=== PATIENT | male | born 1945 | race Caucasian/White ===

== ENCOUNTER 2025-04-13 14:48 | Outpatient (REF) | payer MEDICARE, MEDICAID, SELFPAY ==
--- OUTSIDE RECORDS SUMMARY | 2025-04-13 15:38 | XMS_ITS | Clinical Summary ---
Author Organization [facility] Address [address] [place] [address] Care Team Providers Care Talent Development Analyst Name Role Phone Juana Ana Laura RACHEL Primary Care Provider [phone] Surgical History Surgery Date Site/Laterality Comments CATARACT EXTRACTION 2013 PROCEDURE: HISTORICAL CATARACT REMOVAL Medical History Medical History Date Comments Hx of CABG 02/25/2017 DX:Hx of CABG; C OMMENT: x3 2000 Dr. Wynne process safety engineering technologist Coronary artery disease 02/25/2017 DX:Coron venkata artery disease HTN (hypertension) 02/25/2017 DX:HTN (hyper tension) Hyperlipidemia 02/25/2017 DX:Hyperlipidemi a BPH (benign prostatic hypertrophy) 02/25/2017 DX:BPH (benign prostatic hypertrophy) History of herpes zoster 02/25/2017 DX:Hist ory of herpes zoster Osteoarthritis of knee 02/25/2017 DX:Osteoa rthritis of knee Hard of hearing 02/25/2017 DX:Hard of heari ng History of head injury 02/25/2017 DX:Histor y of head injury History of cataract surgery 03/04/2017 DX:H istory of cataract surgery; COMMENT: 2013 Social History Tobacco Use Types Packs/Day Years Used Date Smoking Tobacco: Never Smokeless Tobacco: Never Alcohol Use Standard Drinks/Week Comments Not Asked 0 (1 standard drink = 0.6 oz pur e alcohol) Sex and Gender Information Value Date Recorded Sex Assigned at Not on file Legal Sex Male 2:18 PM EST Gender Identity Not on file Sexual Orientation Not on file Obstetrics History Plan of Treatment Health Maintenance Due Date Last Done Comments Zoster Vaccines (1 of 2) 1993 RSV Immunization Adult Patients (1 - 1-dose 75+ series) 2018 COVID-19 Vaccine ( season) 2024 03/30/2021, 03/09/2021 Influenza Vaccine (Season Ended) 2025 10/24/2022, 08/14/2021, 07/26/2020, Additional history exists DTaP,Tdap,and Td Vaccines (3 - Td or Tdap) 01/20/2029 01/20/2019, 08/03/2009 Pneumococcal Vaccine: 50+ Years Completed 09/20/2019, 08/31/2018 HIB Vaccines Aged Out No longer eligi ble based on patient's age to complete this topic HPV Vaccines Aged Out No longer eligi ble based on patient's age to complete this topic Hepatitis A Vaccines Aged Out No long er eligible based on patient's age to complete this topic Hepatitis B Vaccines Aged Out No long er eligible based on patient's age to complete this topic IPV Vaccines Aged Out No longer eligi ble based on patient's age to complete this topic MMR Vaccines Aged Out No longer eligi ble based on patient's age to complete this topic Meningococcal ACWY Vaccine Aged Out N o longer eligible based on patient's age to complete this topic Meningococcal B Vaccine Aged Out No l onger eligible based on patient's age to complete this topic RSV Immunization Patients Under 20 months Aged Out No longer eligible based on patient's age to complete this topic Varicella Vaccines Aged Out No longer eligible based on patient's age to complete this topic Care Teams Talent Development Analyst Relationship Specialty Start Date End Date Ana Laura Arias NP PCP - General Internal Medicine 05/25/20
[2025-04-13 17:31] LABS: MANUAL DIFF FLAG NO
[2025-04-13 17:58] LABS: Alanine Aminotransferase 10 U/L (0-40); Albumin Level 4.2 g/dL (3.5-5.0); Alkaline Phosphatase 103 U/L (39-117); Anion Gap 11 (12-20); Aspartate Amino Transferase 20 U/L (5-37); Bilirubin Total 0.5 mg/dL (0.0-1.0); Blood Urea Nitrogen 15 mg/dL (9-16); Calcium 9.3 mg/dL (8.4-10.2); Carbon Dioxide 27 mmol/L (22-29); Chloride 106 mmol/L (96-108); Cholesterol 246 mg/dL (<200); Estimated Glomerular Filt Rate > 60; Glucose Random 95 mg/dL (60-115); HDL Cholesterol 40 mg/dL (>40); LDL Cholesterol Calculated 162 mg/dL (<100); Sodium 140 mmol/L (135-145); Triglycerides 224 mg/dL (<150)
[2025-04-13 18:04] LABS: Basophils Absolute Auto 0.1 X10*3/uL (0.0-0.2); Eosinophils Absolute Auto 0.1 X10*3/uL (0.0-0.4); Eosinophils Percent Auto 1.7 % (0-4); Hematocrit 43.1 % (42.0-52.0); Hemoglobin 14.7 g/dl (14.0-18.0); Imm Gran Abs Auto 0.01 X10*3/uL (0.00-0.03); Imm Gran Pct Auto 0.2 % (0.0-0.4); Lymphocytes Absolute Auto 2.6 X10*3/uL (1.2-4.9); Lymphocytes Percent Auto 44.5 % (20-40); Mean Corpuscular HGB Conc 34.1 g/dl (31.0-36.0); Mean Corpuscular Hemoglobin 30.7 pg (27.0-33.0); Mean Platelet Volume 10.6 fL (9.4-12.4); Monocytes Absolute Auto 0.7 X10*3/uL (0.1-1.2); Monocytes Percent Auto 11.6 % (2-11); Neutrophils Absolute Auto 2.4 x10*3/uL (2.0-8.3); Platelet Count 197 X10*3/uL (160-400); Red Blood Count 4.79 X10*6/uL (4.60-5.80); Red Cell Distribution Width 13.7 % (11.0-16.0); White Blood Count 5.9 X10*3/uL (4.8-10.8)
[2025-04-13 18:16] LABS: TSH reflex Free T4 2.25 uIU/mL (0.32-4.0)
[2025-04-14 07:58] LABS: ~HepC Num1 0.13 S/CO (0.00-0.79); ~Hepatitis C Antibody Nonreactive (Nonreactive)
== END 2025-04-13 14:49 | disposition home or self-care (01) ==
LOC: HO.CHCLDS 14:48
PROVIDERS: Visit Provider Internal Medicine
DX: I51.89 Other ill-defined heart diseases (principal); E78.2 Mixed hyperlipidemia; I10 Essential (primary) hypertension
CPT/HCPCS: 36415; 80053; 80061; 84443; 85025; 86803

== ENCOUNTER → 2025-05-12 09:07 | Outpatient (REF) | payer MEDICARE, MEDICAID, SELFPAY ==
--- NOTE | 2025-05-12 09:11 | CA_ITS ---
Transthoracic Echocardiogram Patient (Last, First, Middle): Grant Lord, Gender: Male Date of : 1945 Age: 80 Procedure Date: 05/12/2025 Procedure Type: Transthoracic Echocardiogram Location: OP Height: 170.18 cm Weight: 83.92 kg BSA: 1.96 m2 Heart Rate: bpm BP: 170 / 80 mmHg Fourth Officer: TO Referring MD: Rose Scruggs MD Symptoms: I51.89 DIASTOLIC DYSFUNCTION HTN I.10 RBBB I45.10 H/O CABG Study Quality: Fair/Contrast ECG Rhythm: Sinus with PACs Conclusions: - The left ventricular systolic function is low normal. The calculated ejection fraction is 53% by biplane method. - No obvious valvular pathology seen on this study. Findings Procedure Information Contrast agent, definity, is being given per protocol without apparent complications. Left Ventricle Normal left ventricular cavity size. There is normal left ventricular wall thickness. The left ventricular systolic function is low normal. The calculated ejection fraction is 53% by biplane method. There is no evidence of regional wall motion abnormalities. There is paradoxical septal motion consistent with post-operative status. Evidence suggests grade I (mild) diastolic dysfunction. Right Ventricle Normal right ventricular cavity size. There is moderately decreased right ventricular systolic function. Atria Both atria are normal in size. Aortic Valve There is a normal trileaflet aortic valve. There is no aortic valve stenosis. There is no aortic valve regurgitation. Mitral Valve The mitral valve appears normal. There is trace mitral valve regurgitation. There is no mitral valve stenosis. Pulmonic Valve There is trace pulmonic valve regurgitation. Tricuspid Valve There is trace tricuspid valve regurgitation. There is no evidence of pulmonary hypertension. Great Vessels The asc aorta is normal in size. Venous The inferior vena cava is normal in size and collapses greater than 50% with inspiration. Pericardium/Pleural There is no evidence of pericardial effusion. Prior Study Comparison No prior study available for comparison. Recommendations, Care & Conclusions No obvious valvular pathology seen on this study. Measurements 2D Linear Measurements IVSd: 0.93 0.6-0.9/0.6-1.0 cm LVIDd: 4.68 3.9-5.3/4.2-5.9 cm LVIDd Index: 2.39 2.4-3.2/2.2-3.1 cm/m2 LVIDs: 2.99 2.0-3.6 cm LVPWd: 0.70 0.7-1.1 cm LA Diam: 3.20 2.7-3.8/3.0-4.0 cm LAIDs Index: 1.63 1.5-2.3 cm/m2 LV Mass: 155.18 67-162/88-224 g LV Mass Index: 79.18 43-95/49-115 g/m2 LVOT Diam: 2.30 3.0+(-)1.3 cm 2D Systolic Function EF 4C: 52.30 >55% EF 2C: 53.40 >55% EF BiP: 52.90 >55% Mitral Valve MV Pk E: 0.48 MV PK A: 0.91 MV Decel Time: 360.00 E/A: 0.50 E'Lateral: 4.25 E'Medial: 3.97 E/E' Med: 12.10 E/E' Lat: 11.30 PHT: 105.00 MVA PHT: 2.10 Decel [place]: 1.33 Aortic Valve AoV Pk Adama: 0.97 AoV Pk Grad: 4.00 LVOT LVOT Pk Adama: 0.83 LVOT Mn Adama: 0.49 LVOT VTI: 0.18 LVOT Pk Grad: 3.00 LVOT Mn Grad: 1.00 LVOT Diam: 2.30 LVOT Area: 4.15 Diastolic Function MV Pk E: 0.48 MV Pk A: 0.91 E/A: 0.50 E'Medial: 3.97 E/E' Med: 12.10 E' Laterial: 4.25 E/E' Lat: 11.30 Right Ventricle TAPSE (mm): 10.80 TVS' Adama: 6.67 Tricuspid Valve TR Pk Adama: 1.93 TR Pk Grad: 15.00 RA Press: 3.00 RVSP: 18.00 Great Vessels Aorta Sinus of Valsalva: 3.62 2.0-3.5 cm Ao Asc: 3.60 2.1-3.4 cm Updated in Other Vendor System with Status of Final Tom Chandler MD electronically signed on 05/14/2025 11:24:37 AM with status of Final
== END ==
LOC: HO.CARD 09:07
PROVIDERS: PCP Internal Medicine; Visit Provider Internal Medicine
DX: I51.89 Other ill-defined heart diseases (principal)
CPT/HCPCS: 93306; Q9957

== ENCOUNTER → 2025-05-12 09:11 | Outpatient (BNV) | payer MEDICARE, MEDICAID, SELFPAY | PROVIDERS: PCP Internal Medicine; Visit Provider Internal Medicine | DX: I51.89 Other ill-defined heart diseases (principal); Z95.1 Presence of aortocoronary bypass graft | CPT/HCPCS: 93306 ==

== ENCOUNTER 2025-08-30 12:17 | Outpatient (AMB) | payer MEDICARE, MEDICAID, SELFPAY ==
--- NOTE | 2025-08-30 12:46 | A.OFFVIS_ITS ---
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 Patient is 80-year-old male with prior history of CAD status post three-vessel coronary artery bypass grafting July of 2001. Lost follow up in Cardiology Clinic many years ago. He has not had a follow up with central office trouble shooter for unclear reasons. He comes with his neighbor who is also helps with his healthcare visits. Patient complains of left-sided chest pain usually after eating crackers. He said he walks in the driveway of his home but does not exercise much and gets short of breath. No exertional chest pain. He does not recall as to the reason for having coronary artery bypass grafting but says that he might have had chest pain. He is currently not on any medication for unclear reason. He had an echocardiogram recently which showed a low normal EF of 53% with no major valvular abnormality. Denies any heart failure symptoms. Denies any prolonged palpitation irregular heartbeat. [facility]LY [facility] Medical History CAD (coronary artery disease) Surgical History S/P CABG x 3 Family History Father No problems noted. Mother No problems noted. Social History Alcohol intake: never Review of Systems Const Denies chills, Denies daytime sleepiness, Denies fatigue, Denies fever(s), Denies frequent falls, Denies poor appetite, Denies snoring, Denies stops breathing during sleep, Denies weakness, Denies weight gain and Denies weight loss Eyes Denies loss of vision ENT Denies dizziness and Denies hearing loss Card Reports chest pain, Denies claudication, Denies leg edema, Denies lightheadedness, Denies palpitations, Denies dyspnea, Denies dyspnea on exertion and Denies orthopnea Resp Denies cough, Denies excessive phlegm production, Denies dyspnea, Denies dyspnea on exertion, Denies snoring and Denies wheezing GI Denies abdominal pain, Denies hematochezia, Denies change in bowel habits, Denies nausea and Denies vomiting Denies dysuria and Denies urinary frequency Musc Denies arthralgias, Denies muscle weakness and Denies numbness Skin/Breast Denies nail changes and Denies rash Neuro Denies Abnormal speech present, Denies dizziness, Denies frequent falls, Denies loss of vision, Denies memory loss, Denies numbness and Denies weakness Psych Denies depression and Denies memory loss Endo Denies fatigue and Denies palpitations Matt/Lymph Reports easy bruising and Reports other (anemia) Aller/Immun Denies wheezing Physical Exam Vital Signs: Last Vital Signs Pulse 65 08/30/25 12:47 BP 136/74 08/30/25 12:47 BMI result Body Mass Index 23.5 Const General: cooperative, comfortable, no acute distress, alert and awake Nutritional Appearance: average body habitus Orientation/consciousness: patient oriented x3 HEENT Head: Yes normocephalic and Yes atraumatic Neck Neck: Yes trachea midline, Yes supple and Yes no JVD Carotids: no bruits Resp Effort & Inspection: normal respiratory effort Auscultation: clear to auscultation bilaterally and diminished lung sounds Cardio Jugular venous distension: no JVD Rate: regular rate Rhythm: regular rhythm Heart sounds: S1 normal heart sound present, S2 normal heart sound present, no click, no gallops, no murmurs and no rubs GI Auscultation: normal bowel sounds Skin General skin exam: no rashes or lesions noted Neuro General: patient oriented x3 and no focal motor deficits Speech: No Abnormal speech present Extrem General: Yes no clubbing, cyanosis or edema Office Procedures EKG Details: EKG shows normal sinus rhythm with right bundle-branch block, unchanged from last EKG in April of 2025 [id number], Complete Assessment & Plan Assessment & Plan (1) CAD (coronary artery disease): Code(s): I25.10 - Atherosclerotic heart disease of [place] coronary artery without angina pectoris Category: Medical Plan: Chronic coronary artery disease with remote coronary artery bypass grafting with recent symptoms of precordial chest pain which are atypical in nature although graft patency as well as progressive coronary artery disease needs to be ruled out. Will suggest exercise myocardial perfusion imaging to assess for the same. This was discussed with him in details. His recent echocardiogram shows low normal EF and he has no signs or symptoms of heart failure. He should at least be on low-dose aspirin therapy and high-intensity statin therapy. Have taken the liberty to prescribe the same. Will need lipid panel in 6 weeks time. Will try to obtain his old coronary artery bypass grafting report. Will follow up in the clinic in 2 months time, sooner PRN. Thank you for allowing me to partake in his care Orders: Orders CA stress test Today I25.10 - Atherosclerotic heart disease of [place] coronary artery without angina pectoris NM cardiolite stress test 2 Weeks I25.10 - Atherosclerotic heart disease of [place] coronary artery without angina pectoris, R07.9 - Chest pain, unspecified Lipid Panel 6 Weeks I25.10 - Atherosclerotic heart disease of [place] coronary artery without angina pectoris Medications: New atorvastatin (Lipitor) 40 mg PO DAILY 30 tabs 5RF I25.10 - Atherosclerotic heart disease of [place] coronary artery without angina pectoris aspirin (Ecotrin Low Strength) 81 mg PO DAILY 30 tabs 5RF I25.10 - Atherosclerotic heart disease of [place] coronary artery without angina pectoris Coding Level of Care Code New Pt Level 4 (31102) Complex EM visit Add On G2211 Diagnoses CAD (coronary artery disease) I25.10 CPT Codes EKG - CPT: [id number], Complete ([id number])
[2025-08-30 12:47] VITALS: BP 136/74; PULSE 65; BMI 23.5
--- OUTSIDE RECORDS SUMMARY | 2025-08-30 15:01 | XMS_ITS | Clinical Summary ---
Author Organization [facility] Address [address] [place] [address] Care Team Providers Care Negative Turner Apprentice Name Role Phone Jauna Ana Laura RACHEL Primary Care Provider [phone] Surgical History Surgery Date Site/Laterality Comments CATARACT EXTRACTION 2013 PROCEDURE: HISTORICAL CATARACT REMOVAL Medical History Medical History Date Comments Hx of CABG 02/25/2017 DX:Hx of CABG; C OMMENT: x3 2000 Dr. Wynne operational review sergeant Coronary artery disease 02/25/2017 DX:Coron venkata artery [...] Patients (1 - 1-dose 75+ series) 2018 Depression Screening 11/17/2024 COVID-19 Vaccine ( season) 2025 03/30/2021, 03/09/2021 Influenza Vaccine (#1) 2025 2, 08/14/2021, 07/26/2020, Additional history exists DTaP,Tdap,and Td [...] age to complete this topic Care Teams Negative Turner Apprentice Relationship Specialty Start Date End Date Ana Laura Arias NP PCP - General Internal Medicine 05/25/20
--- OUTSIDE RECORDS SUMMARY | 2025-08-30 15:01 | XMS_ITS | Encounter Summary ---
Author Organization [facility] Address [address] [place] [address] [address] [place] [address] Care Team Providers Care Supervisor Twisting Department Name Role Phone Rose Scruggs MD Primary Care Provider [phone] Reason for Visit * Reason Onset Date Comments New Patient 01/20/2025 Encounter Details Date Type Department Care Team (Late st Contact Info) Description 01/20/2025 Telephone [facility] MEDICINE [address] [place] [address] [phone] Sarath Middleton MD [address] [place], [place] [phone] New Patient Social History Tobacco Use Types Packs/Day Years Used Date Smoking Tobacco: Never Assessed Sex and Gender Information Value Date Recorded Sex Assigned at Male 04/12/2025 9:05 AM EDT Legal Sex Male 9:04 AM EST Gender Identity Male 04/12/2025 9:05 AM EDT Sexual Orientation Straight 04/12/2025 9: 05 AM EDT documented as of this encounter Miscellaneous Notes * Telephone Encounter - Chaya Yun - 01/21/2025 10:47 AM EST Patient added to [facility] New Patient wait list as 01-21-2025 * Telephone Encounter - Ngoc Blackman - 01/21/2025 8:06 AM EST TC from caller requesting NEW PATIENT visit . DX : N/A Medical Concern: Open heart surgery (10 yrs ago) Insurance name : [employer] Location : [place] Demographic information updated * Telephone Encounter - Ovidio Clifton - 01/20/2025 9:09 AM EST Tc from Granddaughter calling to place pt on new patient waiting list, television script writer advised will need ID number. Granddaughter stated she will be calling back with ID. documented in this encounter Plan of Treatment Not on file documented as of this encounter Visit Diagnoses Not on filedocumented in this encounter Care Teams Supervisor Twisting Department Relationship Specialty Start Date End Date Rose Scruggs MD [address] [place] [id number] PCP - General Internal Medicine 04/13/25 documented as of this encounter
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
== END 2025-08-30 13:12 | disposition home or self-care (01) ==
LOC: HO.HCS 12:17
PROVIDERS: PCP Internal Medicine; Visit Provider Internal Medicine Cardiovascular Disease
DX: I25.10 Atherosclerotic heart disease of native coronary artery without angina pectoris (principal)
CPT/HCPCS: 93010; 99204; G2211

== ENCOUNTER → 2025-08-30 12:17 | Outpatient (BNVA) | payer MEDICARE, MEDICAID, SELFPAY | PROVIDERS: PCP Internal Medicine; Visit Provider Internal Medicine Cardiovascular Disease | DX: I25.10 Atherosclerotic heart disease of native coronary artery without angina pectoris (principal) | CPT/HCPCS: 93005; 99202 ==